=== PATIENT | female | born 1970 | race Hispanic/Latino ===

== ENCOUNTER 2023-02-17 08:39 | Emergency (ER) | payer OTHER ==
[~2023-02-17] VITALS: Ht 165.1 cm; Wt 82.6 kg
[2023-02-17] MEDS ORDERED: DIAZEPAM 5 MG/ML 2 ML SYG IVP STA (09:03)
[2023-02-17 09:12] LABS: BASOPHILS % (AUTO) 0.5 % (0.0-5.0); LYMPHOCYTES % (AUTO) 16.7 % (21.0-51.0); MEAN CORPUSCULAR HEMOGLOBIN 27.9 pg (27.0-33.0); MEAN CORPUSCULAR VOLUME 79.7 fL (79-99); MONOCYTES % (AUTO) 4.7 % (3.0-13.0); NEUTROPHILS % (AUTO) 77.9 % (40.0-77.0); PLATELET COUNT (AUTO) 164 K/uL (130-400); RED BLOOD CELL COUNT(AUTO) 5.02 MIL/uL (4.00-5.50); RED CELL DISTRIBUTION WIDTH 12.3 % (11.0-15.5); WHITE BLOOD COUNT (AUTO) 4.4 K/uL (4.8-10.8)
[2023-02-17 09:23] LABS: CREATININE 0.7 mg/dL (0.5-1.5); POTASSIUM 3.3 mmol/L (3.5-5.1)
[2023-02-17 09:28] LABS: ALBUMIN 3.6 g/dL (3.5-5.0); TOTAL PROTEIN, SERUM 7.4 g/dL (6.0-8.3)
[2023-02-17] MEDS ORDERED: POTASSIUM BICARB/CIT AC 25 MEQ TABLET.EFF PO STA (09:28)
[2023-02-17] MEDS ORDERED: ACETAMINOPHEN 500 MG TABLET ONE (10:08)
[2023-02-17] MEDS ORDERED: ACETAMINOPHEN 500 MG TABLET PO ONE (10:30)
[2023-02-17 10:35] LABS: APPEARANCE,URINE CLEAR (CLEAR); BILIRUBIN,URINE NEGATIVE (NEGATIVE); COLOR,URINE LIGHT-YELLOW (YELLOW); GLUCOSE, URINE (UA) NEGATIVE (NEGATIVE); KETONES,URINE NEGATIVE (NEGATIVE); LEUKOCYTE ESTERASE ,URINE NEGATIVE Leu/uL (NEGATIVE); NITRATE,URINE NEGATIVE (NEGATIVE); OCCULT BLOOD,URINE SMALL (NEGATIVE); PH,URINE 6.5 (5.0-8.0); PROTEIN,URINE NEGATIVE (NEGATIVE); UROBILINOGEN,URINE 0.2 mg/dL (0.2-1.0)
[2023-02-17 10:59] VITALS: BP 111/67
[2023-02-17 11:08] LABS: SQUAMOUS EPITHELIAL CELL,UR FEW /HPF (0-2); TRANSITIONAL EPI CELLS,URINE RARE /HPF (None Seen); WBC,URINE 0-1 /HPF (0-1)
[2023-02-17] MEDS ORDERED: FLUT16H NASAL (11:22)
[2023-02-17] MEDS ORDERED: CLIN-141 PO (11:22)
== END 2023-02-17 11:27 | disposition home or self-care (01) ==
LOC: EDH 08:39
DX: J32.9 Chronic sinusitis, unspecified (principal); F17.200 Nicotine dependence, unspecified, uncomplicated; Z90.710 Acquired absence of both cervix and uterus; Z88.0 Allergy status to penicillin
CPT/HCPCS: 99285; 96374; 71045; 84484; 80053; 85025; 81001; 36415; 93005; J3360

== ENCOUNTER 2023-02-21 23:02 | Inpatient (IN) | payer OTHER ==
[~2023-02-21] VITALS: Ht 167.6 cm; Wt 83.3 kg
[~2023-02-21 23:02] MED LIST: CLIN-141 PO; FLUT16H NASAL
[2023-02-21] MEDS ORDERED: ACETAMINOPHEN 500 MG TABLET ONE (23:26)
[2023-02-21] MEDS ORDERED: ACETAMINOPHEN 500 MG TABLET PO ONE (23:30)
[2023-02-21] MEDS ORDERED: ASPIRIN 325MG TAB ONE (23:30)
[2023-02-21] MEDS ORDERED: 0.9%NACL 1000ML 1,000 ML IV ONE (23:30)
[2023-02-21 23:39] LABS: EOSINOPHILS % (AUTO) 0.1 % (0.0-8.0); HEMATOCRIT 37.8 % (36-48); LYMPHOCYTES % (AUTO) 18.6 % (21.0-51.0); MEAN CORPUSCULAR HEMOGLOBIN 28.1 pg (27.0-33.0); MEAN CORPUSCULAR HGB CONC 34.9 g/dL (32.0-36.0); MEAN CORPUSCULAR VOLUME 80.6 fL (79-99); MONOCYTES % (AUTO) 2.9 % (3.0-13.0); NEUTROPHILS % (AUTO) 76.5 % (40.0-77.0); PLATELET COUNT (AUTO) 144 K/uL (130-400); RED BLOOD CELL COUNT(AUTO) 4.69 MIL/uL (4.00-5.50); RED CELL DISTRIBUTION WIDTH 12.4 % (11.0-15.5); WHITE BLOOD COUNT (AUTO) 8.2 K/uL (4.8-10.8)
[2023-02-21 23:59] LABS: CREATININE 0.8 mg/dL (0.5-1.5)
[2023-02-22] MEDS ORDERED: LEVOFLOXACIN 750 MG/D5W 150ML BAG IV ONE
[2023-02-22 00:04] LABS: ALBUMIN 3.1 g/dL (3.5-5.0); TOTAL PROTEIN, SERUM 6.6 g/dL (6.0-8.3)
[2023-02-22] MEDS ORDERED: POTASSIUM CHLORIDE 20MEQ/100ML 100 ML IV PRN (02:30)
[2023-02-22] MEDS ORDERED: MAGNESIUM 2GM PREMIX 50ML 50 ML IV PRN (02:30)
[2023-02-22] MEDS ORDERED: MORPHINE 2 MG SYG IV PRN (02:30)
[2023-02-22] MEDS ORDERED: ACETAMINOPHEN 325 MG TAB PO PRN (02:30)
[2023-02-22] MEDS ORDERED: POTASSIUM CHLORIDE 10% ELIXIR 20 MEQ/15 ML UDCUP PO PRN (02:30)
[2023-02-22] MEDS ORDERED: LACTATED RINGERS IV ONE (02:30)
[2023-02-22] MEDS ORDERED: SODIUM CHLORIDE 3% FOR INHALATION 4 ML/AMP VIAL.NEB IH ONE ×2 (03:04→06:00)
[2023-02-22 03:05] LABS: APPEARANCE,URINE CLEAR (CLEAR); BILIRUBIN,URINE NEGATIVE (NEGATIVE); COLOR,URINE LIGHT-YELLOW (YELLOW); GLUCOSE, URINE (UA) NEGATIVE (NEGATIVE); KETONES,URINE 5 mg/dL (NEGATIVE); LEUKOCYTE ESTERASE ,URINE NEGATIVE Leu/uL (NEGATIVE); NITRATE,URINE NEGATIVE (NEGATIVE); OCCULT BLOOD,URINE SMALL (NEGATIVE); PROTEIN,URINE NEGATIVE (NEGATIVE); UROBILINOGEN,URINE 0.2 mg/dL (0.2-1.0)
[2023-02-22 03:07] LABS: MUCUS,URINE RARE LPF (None Seen); SQUAMOUS EPITHELIAL CELL,UR RARE /HPF (0-2)
[2023-02-22] MEDS ORDERED: IPRATROPIUM/ALBUTEROL SULFATE 3 ML SOLUTION IH SCH (06:00)
[2023-02-22 06:51] LABS: BASOPHILS % (AUTO) 0.5 % (0.0-5.0); HEMATOCRIT 34.8 % (36-48); LYMPHOCYTES % (AUTO) 19.5 % (21.0-51.0); MEAN CORPUSCULAR HEMOGLOBIN 28.2 pg (27.0-33.0); MEAN CORPUSCULAR HGB CONC 34.2 g/dL (32.0-36.0); MEAN CORPUSCULAR VOLUME 82.5 fL (79-99); NEUTROPHILS % (AUTO) 75.5 % (40.0-77.0); PLATELET COUNT (AUTO) 125 K/uL (130-400); RED BLOOD CELL COUNT(AUTO) 4.22 MIL/uL (4.00-5.50); RED CELL DISTRIBUTION WIDTH 12.8 % (11.0-15.5); WHITE BLOOD COUNT (AUTO) 5.6 K/uL (4.8-10.8)
[2023-02-22 07:28] LABS: B-TYPE NATRIURETIC PEPTIDE 64 pg/mL (0-100)
[2023-02-22] MEDS ORDERED: ENOXAPARIN SODIUM 40 MG/0.4 ML SYRINGE SQ SCH (09:00)
[2023-02-22 09:14] LABS: HEMOGLOBIN A1C 5.9 % (4.0-6.0)
[2023-02-22] MEDS: FAMOTIDINE 20MG TAB PO SCH ×2 (09:14→21:57)
[2023-02-22] MEDS: ONDANSETRON 4MG INJ IV PRN ×2 (09:14→21:57)
[2023-02-22 09:23] LABS: INR 0.97 (0.85-1.15); PROTHROMBIN TIME 11.3 SEC (9.6-11.6)
[2023-02-22 09:26] LABS: ALBUMIN 2.5 g/dL (3.5-5.0); CREATININE 0.8 mg/dL (0.5-1.5); POTASSIUM 3.7 mmol/L (3.5-5.1); THYROID STIMULATING HORMONE 1.86 uIU/mL (0.36-3.74)
[2023-02-22] MEDS: KETOROLAC 15MG/ML VIAL (15MG/ML) IV PRN (09:43)
[2023-02-22] MEDS: LACTATED RINGERS 1000ML 1,000 ML IV SCH (10:38)
[2023-02-22] MEDS ORDERED: IPRATROPIUM/ALBUTEROL SULFATE 3 ML SOLUTION IH PRN (11:30)
[2023-02-22] MEDS: DOXYCYCLINE 100MG+NS 250ML IV SCH ×2 (11:31→23:16)
[2023-02-22] MEDS: ACETAMINOPHEN 325 MG TAB PO PRN (13:07)
[2023-02-22 20:18] LABS: HEPATITIS A IGM ANTIBODY Non-Reactive (Nonreactive); HEPATITIS B SURFACE ANTIGEN Non-Reactive (Nonreactive); HEPATITIS C ANTIBODY Non-Reactive (Nonreactive)
[2023-02-22 20:19] LABS: HEPATITIS B CORE IGM ANTIBODY Non-Reactive (Negative)
[2023-02-22] MEDS: MORPHINE 4 MG SYG IV PRN (21:57)
[2023-02-23] VITALS (7 sets, daily range): BP systolic 98–115; BP diastolic 59–77
[2023-02-23] MEDS: LEVOFLOXACIN 750 MG/D5W 150ML BAG IV SCH (00:11)
[2023-02-23 04:56] LABS: BASOPHILS % (AUTO) 0.4 % (0.0-5.0); HEMATOCRIT 33.1 % (36-48); LYMPHOCYTES % (AUTO) 20.3 % (21.0-51.0); MEAN CORPUSCULAR HGB CONC 33.8 g/dL (32.0-36.0); MEAN CORPUSCULAR VOLUME 82.8 fL (79-99); MONOCYTES % (AUTO) 3.5 % (3.0-13.0); NEUTROPHILS % (AUTO) 75.2 % (40.0-77.0); PLATELET COUNT (AUTO) 145 K/uL (130-400); RED CELL DISTRIBUTION WIDTH 13.1 % (11.0-15.5); WHITE BLOOD COUNT (AUTO) 7.2 K/uL (4.8-10.8)
[2023-02-23 05:07] LABS: CREATININE 0.7 mg/dL (0.5-1.5); POTASSIUM 3.4 mmol/L (3.5-5.1)
[2023-02-23] MEDS: LACTATED RINGERS 1000ML 1,000 ML IV SCH ×2 (05:34→22:30)
[2023-02-23 05:47] LABS: ALBUMIN 2.3 g/dL (3.5-5.0); BILIRUBIN,DIRECT 0.5 mg/dL (0.0-0.3)
[2023-02-23] MEDS: ACETAMINOPHEN 325 MG TAB PO PRN (05:51)
[2023-02-23 06:03] LABS: CRP QUANTITATIVE 285.1 mg/L (0.00-9.0)
[2023-02-23] MEDS: KCL 20 MEQ ERTAB PO PRN ×2 (06:14→13:21)
[2023-02-23] MEDS: FAMOTIDINE 20MG TAB PO SCH ×2 (10:29→22:30)
[2023-02-23] MEDS: Vitamin B Complex/Vit C/Folic Acid PO SCH (10:29)
[2023-02-23] MEDS: MULTIVITAMIN WITH MINERALS TABLET PO SCH (10:29)
[2023-02-23] MEDS: DOXYCYCLINE 100MG+NS 250ML IV SCH ×2 (10:29→22:30)
[2023-02-23] MEDS: ASCORBIC ACID 500 MG TAB PO SCH (10:29)
[2023-02-23] MEDS: MORPHINE 4 MG SYG IV PRN ×2 (13:26→18:49)
[2023-02-24] MEDS: LEVOFLOXACIN 750 MG/D5W 150ML BAG IV SCH (00:01)
[2023-02-24] MEDS: ACETAMINOPHEN 325 MG TAB PO PRN (00:01)
[2023-02-24 04:02] VITALS: BP 102/68
[2023-02-24 04:48] LABS: CREATININE 0.8 mg/dL (0.5-1.5); POTASSIUM 3.9 mmol/L (3.5-5.1)
[2023-02-24 08:16] VITALS: BP 104/71
[2023-02-24 08:22] LABS: MEAN CORPUSCULAR HEMOGLOBIN 28.1 pg (27.0-33.0); MEAN CORPUSCULAR HGB CONC 33.5 g/dL (32.0-36.0); MEAN CORPUSCULAR VOLUME 83.7 fL (79-99); RED BLOOD CELL COUNT(AUTO) 4.06 MIL/uL (4.00-5.50); RED CELL DISTRIBUTION WIDTH 13.1 % (11.0-15.5); WHITE BLOOD COUNT (AUTO) 9.2 K/uL (4.8-10.8)
[2023-02-24] MEDS: FAMOTIDINE 20MG TAB PO SCH ×2 (08:37→21:40)
[2023-02-24] MEDS: ASCORBIC ACID 500 MG TAB PO SCH (08:37)
[2023-02-24] MEDS: MULTIVITAMIN WITH MINERALS TABLET PO SCH (08:37)
[2023-02-24] MEDS: Vitamin B Complex/Vit C/Folic Acid PO SCH (08:37)
[2023-02-24] MEDS: MORPHINE 4 MG SYG IV PRN (11:28)
[2023-02-24] MEDS: DOXYCYCLINE 100MG+NS 250ML IV SCH ×2 (11:29→21:40)
[2023-02-24] MEDS: LACTATED RINGERS 1000ML 1,000 ML IV SCH ×2 (11:34→21:40)
[2023-02-24 11:39] VITALS: BP 111/71
[2023-02-24 16:03] VITALS: BP 110/68
[2023-02-24 19:58] VITALS: BP 109/73
[2023-02-24 23:57] VITALS: BP 108/72
[2023-02-25] MEDS: LEVOFLOXACIN 750 MG/D5W 150ML BAG IV SCH ×2 (00:19→23:59)
[2023-02-25] MEDS: KETOROLAC 15MG/ML VIAL (15MG/ML) IV PRN (00:19)
[2023-02-25 03:20] VITALS: BP 108/72
[2023-02-25 05:22] LABS: HEMATOCRIT 34.6 % (36-48); MEAN CORPUSCULAR HEMOGLOBIN 27.2 pg (27.0-33.0); MEAN CORPUSCULAR HGB CONC 32.7 g/dL (32.0-36.0); MEAN CORPUSCULAR VOLUME 83.4 fL (79-99); RED BLOOD CELL COUNT(AUTO) 4.15 MIL/uL (4.00-5.50); WHITE BLOOD COUNT (AUTO) 7.5 K/uL (4.8-10.8)
[2023-02-25 05:42] LABS: ALBUMIN 2.5 g/dL (3.5-5.0); CREATININE 0.7 mg/dL (0.5-1.5); POTASSIUM 3.7 mmol/L (3.5-5.1); TOTAL PROTEIN, SERUM 6.7 g/dL (6.0-8.3)
[2023-02-25 08:00] VITALS: BP 102/67
[2023-02-25] MEDS: ASCORBIC ACID 500 MG TAB PO SCH (08:01)
[2023-02-25] MEDS: FAMOTIDINE 20MG TAB PO SCH ×2 (08:01→20:37)
[2023-02-25] MEDS: MULTIVITAMIN WITH MINERALS TABLET PO SCH (08:01)
[2023-02-25] MEDS: Vitamin B Complex/Vit C/Folic Acid PO SCH (08:01)
[2023-02-25] MEDS: DOXYCYCLINE 100MG+NS 250ML IV SCH ×2 (11:07→21:44)
[2023-02-25] MEDS: KCL 20 MEQ ERTAB PO PRN ×2 (11:07→13:56)
[2023-02-25 11:26] VITALS: BP 104/66
[2023-02-25] MEDS: LACTATED RINGERS 1000ML 1,000 ML IV SCH (13:40)
[2023-02-25 16:32] VITALS: BP 107/76
[2023-02-25 19:00] VITALS: BP 114/72
[2023-02-26] VITALS: BP 107/66
[2023-02-26] MEDS: KETOROLAC 15MG/ML VIAL (15MG/ML) IV PRN ×2 (00:02→11:47)
[2023-02-26 04:00] VITALS: BP 104/61
[2023-02-26] MEDS: LACTATED RINGERS 1000ML 1,000 ML IV SCH ×2 (05:45→06:56)
[2023-02-26 07:42] VITALS: BP 108/72
[2023-02-26] MEDS: ASCORBIC ACID 500 MG TAB PO SCH (09:00)
[2023-02-26] MEDS: Vitamin B Complex/Vit C/Folic Acid PO SCH (09:00)
[2023-02-26] MEDS: FAMOTIDINE 20MG TAB PO SCH ×2 (09:00→21:35)
[2023-02-26] MEDS: MULTIVITAMIN WITH MINERALS TABLET PO SCH (09:00)
[2023-02-26] MEDS ORDERED: LACTULOSE 20 GM/30 ML UDCUP PO PRN (11:00)
[2023-02-26 11:23] VITALS: BP 110/71
[2023-02-26] MEDS: DOXYCYCLINE 100MG+NS 250ML IV SCH ×2 (11:40→23:17)
[2023-02-26] MEDS: KCL 20 MEQ ERTAB PO PRN (11:41)
[2023-02-26 16:39] VITALS: BP 107/74
[2023-02-27] VITALS: BP 119/71
[2023-02-27] MEDS: LEVOFLOXACIN 750 MG/D5W 150ML BAG IV SCH (01:17)
[2023-02-27 04:00] VITALS: BP 120/72
[2023-02-27 04:54] LABS: HEMATOCRIT 35.4 % (36-48); MEAN CORPUSCULAR HEMOGLOBIN 27.9 pg (27.0-33.0); MEAN CORPUSCULAR HGB CONC 32.8 g/dL (32.0-36.0); MEAN CORPUSCULAR VOLUME 85.1 fL (79-99); RED BLOOD CELL COUNT(AUTO) 4.16 MIL/uL (4.00-5.50); RED CELL DISTRIBUTION WIDTH 13.1 % (11.0-15.5); WHITE BLOOD COUNT (AUTO) 6.5 K/uL (4.8-10.8)
[2023-02-27 04:58] LABS: ALBUMIN 2.8 g/dL (3.5-5.0); CREATININE 0.8 mg/dL (0.5-1.5); POTASSIUM 3.9 mmol/L (3.5-5.1); TOTAL PROTEIN, SERUM 6.9 g/dL (6.0-8.3)
[2023-02-27] MEDS: LACTATED RINGERS 1000ML 1,000 ML IV SCH (05:24)
[2023-02-27 08:03] VITALS: BP 106/67
[2023-02-27] MEDS: ASCORBIC ACID 500 MG TAB PO SCH (08:48)
[2023-02-27] MEDS: Vitamin B Complex/Vit C/Folic Acid PO SCH (08:48)
[2023-02-27] MEDS: MULTIVITAMIN WITH MINERALS TABLET PO SCH (08:48)
[2023-02-27] MEDS: FAMOTIDINE 20MG TAB PO SCH (08:48)
[2023-02-27] MEDS: DOXYCYCLINE 100MG+NS 250ML IV SCH (10:39)
[2023-02-27 11:33] VITALS: BP 108/75
[2023-02-28 16:10] LABS: ROCKY MT SPOTTED FEVER IGG <1:64 (Neg:<1:64); ROCKY MT SPOTTED FEVER IGM <1:64 (Neg:<1:64)
== END 2023-02-27 15:45 | disposition home or self-care (01) | DRG 871 ==
LOC: EDH 23:02 → EDHIP 23:03 → 4DH 02-22 23:32
PROVIDERS: ADMIT Internal Medicine; ATTEND Internal Medicine
DX: A41.9 Sepsis, unspecified organism (principal); R65.21 Severe sepsis with septic shock; E87.1 Hypo-osmolality and hyponatremia; E46 Unspecified protein-calorie malnutrition; B17.9 Acute viral hepatitis, unspecified; D69.6 Thrombocytopenia, unspecified; E86.0 Dehydration; E87.6 Hypokalemia; F17.200 Nicotine dependence, unspecified, uncomplicated; Z88.0 Allergy status to penicillin; Z90.710 Acquired absence of both cervix and uterus; Z68.29 Body mass index [BMI] 29.0-29.9, adult
CPT/HCPCS: 36415; 70450; 71045; 71250; 76705; 80048; 80053; 80074; 80076; 81001; 82533; 83036; 83605; 83615; 83735; 83880; 84100; 84145; 84443; 84484; 85025; 85027; 85610; 85651; 85730; 86000; 86140; 86757; 87040; 87071; 87077; 87088; 87186; 87205; 87449; 87635; 87804; 87880; 93005; 93306; 93356; 94640; 94664; 97039; C9803; G0378; J1885; J1956; J2270; J2405; J3490; J7120